=== PATIENT | female | born 2000 | race Caucasian/White ===

== ENCOUNTER → 2018-09-29 | Outpatient (CLI) | payer OTHER ==
[2018-09-30 11:44] LABS: Hemoglobin A1C 5.4 % (4.0-6.0)
== END | disposition home or self-care (01) ==
LOC: LABMAIN 10:04
PROVIDERS: ATTEND Internal Medicine
DX: E03.9 Hypothyroidism, unspecified (principal); E55.9 Vitamin D deficiency, unspecified
CPT/HCPCS: 36415; 82306; 83036; 84439; 84443

== ENCOUNTER 2020-11-23 19:40 | Emergency (ER) | payer OTHER ==
--- NOTE | 2020-11-23 21:05 | XR ---
EXAMINATION TYPE: XR chest 2V DATE OF EXAM: 11/23/2020 COMPARISON: NONE TECHNIQUE: PA and lateral views submitted. HISTORY: Cough FINDINGS: The lungs are clear and there is no pneumothorax, pleural effusion, or focal pneumonia. Coarsened i nterstitium. IMPRESSION: 1. Correlate for bronchitis or interstitial pneumonitis.
[2020-11-23 21:25] LABS: Appearance,Urine Cloudy (Clear); Bacteria,Urine Rare /hpf; Bilirubin,Urine Negative (Negative); Blood,Urine Large (Negative); Color,Urine Yellow; Glucose,Urine (UA) Negative (Negative); Ketones,Urine Negative (Negative); Leukocyte Esterase,Urine Trace (Negative); Mucus,Urine Rare /hpf; Nitrite,Urine Negative (Negative); PH, Urine 5.5 (5.0-8.0); Protein,Urine 1+ (Negative); RBC,Urine 33 /hpf (0-5); Specific Gravity,Urine 1.018 (1.001-1.035); Squamous Epithelial Cell,Urine 5 /hpf (0-4); Urobilinogen,Urine <2.0 mg/dL (<2.0); WBC,Urine 8 /hpf (0-5)
[2020-11-23 22:52] VITALS: BP 134/78; PULSE 103; RESP 18; TEMP 99.7
--- NOTE | 2020-11-23 23:10 | ED ---
General Adult HPI - General Chief complaint: Chest Pain Stated complaint: Chest Pain Source: patient Mode of arrival: ambulatory Limitations: no limitations - History of Present Illness Initial comments: 20-year-old female presents to emergency Department with a chief complaint of headache, cough and congestion. States this started earlier today. Patient reports exposure to known Covid patient several days ago. Patient reports a nonproductive cough with occasional exertional dyspnea. She does report some chest pain after having coughing fits. She also reports generalized fatigue and myalgias but denies any sore throat, otalgia or rhinorrhea. Does report a mild, global headache. She denies any nausea vomiting or diarrhea. Denies any abdominal or back pain. Patient was also concern for possible . - Related Data Home Medications Medication Instructions Recorded Confirmed Levothyroxine Sodium [Synthroid] 125 mcg PO DAILY 02/10/19 02/10/19 Previous Rx's Medication Instructions Recorded Amoxicillin/Potassium Clav 1 tab PO Q12HR 10 Days #20 tab 02/10/19 [Augmentin 875-125 Tablet] Allergies Allergy/AdvReac Type Severity Reaction Status Date / Time No Known Allergies Allergy Verified 02/10/19 09:05 Review of Systems ROS Statement: Those systems with pertinent positive or pertinent negative responses have been documented in the HPI. ROS Other: All systems not noted in ROS Statement are negative. Past Medical History Past Medical History: Thyroid Disorder History of Any Multi-Drug Resistant Organisms: None Reported Past Surgical History: No Surgical Hx Reported Past Psychological History: No Psychological Hx Reported Smoking Status: Never smoker Past Alcohol Use History: None Reported Past Drug Use History: None Reported General Exam Limitations: no limitations General appearance: alert, in no apparent distress, obese Head exam: Present: atraumatic, normocephalic, normal inspection Eye exam: Present: normal appearance, PERRL, EOMI Pupils: Present: normal accommodation ENT exam: Present: normal exam, normal oropharynx, mucous membranes moist, TM's normal bilaterally, normal external ear exam Neck exam: Present: normal inspection, full ROM. Absent: tenderness Respiratory exam: Present: normal lung sounds bilaterally. Absent: respiratory distress, wheezes, rales, rhonchi, stridor, chest wall tenderness, accessory muscle use Cardiovascular Exam: Present: regular rate, normal rhythm, normal heart sounds. Absent: systolic murmur, diastolic murmur GI/Abdominal exam: Present: soft. Absent: distended, tenderness, guarding, rebound Extremities exam: Present: normal inspection, full ROM, normal capillary refill. Absent: tenderness Back exam: Present: normal inspection, full ROM. Absent: tenderness Neurological exam: Present: alert, oriented X3, CN II-XII intact, normal gait Psychiatric exam: Present: normal affect, normal mood Skin exam: Present: warm, dry, intact, normal color Course Vital Signs 11/23/20 11/23/20 20:34 22:51 Temperature 98.8 F 99.7 F H Pulse Rate 109 H 103 H Respiratory 20 18 Rate Blood Pressure 145/100 134/78 O2 Sat by Pulse 98 98 Oximetry Medical Decision Making - Medical Decision Making 20-year-old male presents to the emergency department with a chief complaint of headache, cough and congestion. On physical examination, patient is having a productive cough but does not appear to be in any respiratory distress. Patient was covid-19 positive. UA shows no signs of urinary tract infection. She does have mild hematuria. Not . EKG showing sinus tachycardia. Chest x-ray showing changes suggesting bronchitis or pneumonitis. Patient does fit criteria for monoclonal antibody based on her BMI. This was offered to the patient, she declined. She did not want any further laboratory workup performed. Patient states she would like to go home and take Tylenol Motrin for the fever. I advised her to drink plenty of fluids and quarantine for the next 10 days. Strict return parameters were thoroughly discussed the patient was understanding and agreeable. Case discussed with - Lab Data Lab Results 11/23/20 11/23/20 11/23/20 Range/Units 20:38 21:01 21:01 Urine Color Yellow Urine Appearance Cloudy H (Clear) Urine pH 5.5 (5.0-8.0) Ur Specific [place] 1.018 (1.001-1.035) Urine Protein 1+ H (Negative) Urine Glucose (UA) Negative (Negative) Urine Ketones Negative (Negative) Urine Blood Large H (Negative) Urine Nitrite Negative (Negative) Urine Bilirubin Negative (Negative) Urine Urobilinogen <2.0 (<2.0) mg/dL Ur Leukocyte Esterase Trace H (Negative) Urine RBC 33 H (0-5) /hpf Urine WBC 8 H (0-5) /hpf Ur Squamous Epith Cells 5 H (0-4) /hpf Urine Bacteria Rare H (None) /hpf Urine Mucus Rare H (None) /hpf Urine HCG, Qual Not Detected (Not Detectd) Coronavirus (PCR) Detected A (Not Detectd) Disposition Clinical Impression: COVID-19 Disposition: HOME SELF-CARE Condition: Stable Instructions (If sedation given, give patient instructions): Coronavirus Disease 2019 (COVID-19) Additional Instructions: Quarantine and take Tylenol or Motrin for fever. Drink plenty of fluids. Return to emergency department if symptoms worsen. Is patient prescribed a controlled substance at d/c from ED?: No Referrals: None,Stated [Primary Care Provider] - 1-2 days Time of Disposition: 23:10
== END 2020-11-23 23:15 | disposition home or self-care (01) ==
LOC: EC 19:40
DX: U07.1 COVID-19 (principal); E66.9 Obesity, unspecified; Z68.38 Body mass index [BMI] 38.0-38.9, adult
CPT/HCPCS: 71046; 81001; 81025; 87635; 93005; 99285

== ENCOUNTER → 2023-09-25 | Outpatient (CLI) | payer BC ==
[2023-09-25 15:29] LABS: Basophils # (A) 0.06 X 10*3/uL (0.00-0.10); Basophils % (A) 0.6 %; Eosinophils # (A) 0.11 X 10*3/uL (0.04-0.35); Eosinophils % (A) 1.2 %; HCT 43.5 % (37.2-46.3); HGB 14.1 g/dL (12.0-15.0); Lymphocytes # (A) 2.61 X 10*3/uL (0.90-5.00); Lymphocytes % (A) 27.4 %; MCH 28.2 pg (27.0-32.0); MCHC 32.4 g/dL (32.0-37.0); Mean Platelet Volume 12.6 FL (9.5-12.2); Monocytes # (A) 0.64 X 10*3/uL (0.20-1.00); Monocytes % (A) 6.7 %; NRBC Per 100 WBC 0 X 10*3/uL (0.00-0.01); Neutrophils # (A) 6.07 X 10*3/uL (1.80-7.70); Neutrophils % (A) 63.7 %; Platelet Count 203 X 10*3/uL (140-440); WBC 9.53 X 10*3/uL (4.50-10.00)
[2023-09-25 15:52] LABS: Appearance,Urine Clear (Clear); Bilirubin,Urine Negative (Negative); Blood,Urine Negative (Negative); Color,Urine Yellow (Yellow); Ketones,Urine Negative (Negative); Nitrite,Urine Negative (Negative); PH, Urine 6.5; Specific Gravity,Urine 1.008 (1.001-1.030); Urobilinogen,Urine 0.2 E.U./DL
[2023-09-25 15:58] LABS: Bacteria,Urine None Seen (None Seen)
[2023-09-25 16:06] LABS: Hepatitis A Antibody IgM Nonreactive; Hepatitis B Core IgM Nonreactive; Hepatitis B Surface Antigen Nonreactive; Hepatitis C IgG Antibody Nonreactive
[2023-09-25 16:13] LABS: Erythrocyte Sedimentation Rate 31 mm/Hr (0-20)
[2023-09-25 16:15] LABS: % Iron Saturation 30.37 (12.00-45.00); ALT 30 U/L (8-44); AST 17 U/L (13-35); Albumin 4.6 g/dL (3.8-4.9); Albumin/Globulin Ratio 1.77 Ratio (1.60-3.17); Alkaline Phosphatase 58 U/L (41-126); BUN/Creat Ratio 18.14 Ratio (12.00-20.00); Blood Urea Nitrogen 12.7 mg/dL (9.0-27.0); Calcium 9.7 mg/dL (8.7-10.3); Carbon Dioxide 25.5 mmol/L (21.6-31.8); Chloride 104 mmol/L (96-109); Chol/HDL Ratio 4.01 Ratio; Creatine Kinase 99 U/L (26-186); Globulin 2.6 g/dL (1.6-3.3); Glucose 89 mg/dL (70-110); Iron 106 UG/DL (50-170); LDL Cholesterol,Calculated 73.1 mg/dL (0.0-131.0); Sodium 141 mmol/L (135-145); T4, Free (Free Thyroxine) 0.87 ng/dL (0.80-1.80); Total Bilirubin 0.5 mg/dL (0.3-1.2); Total Iron Binding Capacity 349 UG/DL (228-460); Total Protein 7.2 g/dL (6.2-8.2); Uric Acid 4.4 mg/dL (2.9-7.7)
== END | disposition home or self-care (01) ==
LOC: LABWHC1 07:26
PROVIDERS: ATTEND Internal Medicine
DX: Z00.00 Encounter for general adult medical examination without abnormal findings (principal); I10 Essential (primary) hypertension; D64.9 Anemia, unspecified; E55.9 Vitamin D deficiency, unspecified
CPT/HCPCS: 36415; 80053; 80061; 80074; 81001; 82306; 82550; 82728; 83540; 83550; 83735; 84100; 84439; 84443; 84550; 85025; 85652; 86140

== ENCOUNTER → 2024-06-13 | Outpatient (CLI) | payer OTHER ==
[2024-06-13 15:06] LABS: Basophils # (A) 0.07 X 10*3/uL (0.00-0.10); Basophils % (A) 0.7 %; Eosinophils # (A) 0.15 X 10*3/uL (0.04-0.35); Eosinophils % (A) 1.5 %; HCT 41.2 % (37.2-46.3); HGB 13.4 g/dL (12.0-15.0); Lymphocytes # (A) 2.66 X 10*3/uL (0.90-5.00); Lymphocytes % (A) 26.4 %; MCH 28.2 pg (27.0-32.0); MCHC 32.5 g/dL (32.0-37.0); MCV 86.6 FL (80.0-97.0); Mean Platelet Volume 12.2 FL (9.5-12.2); Monocytes # (A) 0.72 X 10*3/uL (0.20-1.00); Monocytes % (A) 7.1 %; NRBC Per 100 WBC 0 X 10*3/uL (0.00-0.01); Neutrophils # (A) 6.44 X 10*3/uL (1.80-7.70); Neutrophils % (A) 63.9 %; Platelet Count 229 X 10*3/uL (140-440); RBC 4.76 X 10*6/uL (4.10-5.20); RDW 13.2 % (11.5-14.5); WBC 10.08 X 10*3/uL (4.50-10.00)
[2024-06-13 15:35] LABS: ALT 23 U/L (8-44); AST 20 U/L (13-35); Albumin 4.3 g/dL (3.8-4.9); Albumin/Globulin Ratio 1.72 Ratio (1.60-3.17); Alkaline Phosphatase 57 U/L (41-126); BUN/Creat Ratio 17.38 Ratio (12.00-20.00); Blood Urea Nitrogen 13.9 mg/dL (9.0-27.0); Calcium 9.5 mg/dL (8.7-10.3); Carbon Dioxide 25.3 mmol/L (21.6-31.8); Chloride 105 mmol/L (96-109); Chol/HDL Ratio 3.68 Ratio; Globulin 2.5 g/dL (1.6-3.3); Glucose 93 mg/dL (70-110); LDL Cholesterol,Calculated 77.5 mg/dL (0.0-131.0); Potassium 4.2 mmol/L (3.5-5.5); Sodium 141 mmol/L (135-145); T4, Free (Free Thyroxine) 0.73 ng/dL (0.80-1.80); Total Bilirubin 0.4 mg/dL (0.3-1.2); Total Protein 6.8 g/dL (6.2-8.2)
== END | disposition home or self-care (01) ==
LOC: LABWHC1 09:12
PROVIDERS: ATTEND Family Medicine
CPT/HCPCS: 36415; 80053; 80061; 82306; 83036; 84439; 84443; 85025; 86480